=== PATIENT | female | born 1955 | race Caucasian/White ===

== ENCOUNTER 2020-05-27 05:26 | Emergency (ER) | payer MEDICARE, OTHER ==
[~2020-05-27] VITALS: Ht 172.7 cm; Wt 62.6 kg
--- NOTE | 2020-05-27 05:35 | NUR ---
Dr. Zhu at bedside for MSE.
[2020-05-27] MEDS ORDERED: NEOMY/BACITRA/POLYMYXIN B OINT UD PACKET TP ONE ×2 (06:30→06:32)
--- NOTE | 2020-05-27 06:45 | NUR ---
Patient discharged to home in stable condition. Written and verbal after care instructions given. Patient verbalizes understanding of instructions. Ambulated out of ER in steady gait.
[2020-05-27 06:48] VITALS: BP 155/89
== END 2020-05-27 06:45 | disposition home or self-care (01) ==
LOC: ER 05:28
DX: S61.531A Puncture wound without foreign body of right wrist, initial encounter (principal); W25.XXXA Contact with sharp glass, initial encounter; Y92.89 Other specified places as the place of occurrence of the external cause; R03.0 Elevated blood-pressure reading, without diagnosis of hypertension
CPT/HCPCS: 73110; A4663

== ENCOUNTER 2020-06-16 19:24 | Emergency (ER) | payer MEDICARE, OTHER ==
[~2020-06-16] VITALS: Ht 172.7 cm; Wt 62.1 kg
--- NOTE | 2020-06-16 19:35 | NUR ---
Dr. Mahan at bedside for MSE.
--- NOTE | 2020-06-16 19:53 | NUR ---
Xray at bedside.
--- NOTE | 2020-06-16 21:25 | NUR ---
Ultrasound at bedside.
--- NOTE | 2020-06-16 22:20 | NUR ---
Patient discharged to home in stable condition. Written and verbal after care instructions given. Patient verbalizes understanding of instructions. Stressed follow up or return to ER for worsening s/s. Patient ambulated out of ER with steady gait, no acute signs of distress, VSS, all belongings taken.
[2020-06-16 22:21] VITALS: BP 118/88
== END 2020-06-16 22:22 | disposition home or self-care (01) ==
LOC: ER 19:31
DX: T79.2XXA Traumatic secondary and recurrent hemorrhage and seroma, initial encounter (principal); W18.02XA Striking against glass with subsequent fall, initial encounter; Y92.89 Other specified places as the place of occurrence of the external cause
CPT/HCPCS: 73110; 73130; 76881; A4663